=== PATIENT | female | born 1990 | race African-American/Black ===

== ENCOUNTER 2019-03-17 16:09 | Emergency (ER) | payer MEDICAID ==
[~2019-03-17] VITALS: Ht 177.8 cm; Wt 81.6 kg
[2019-03-17 16:10] VITALS: BP_SYST 122
--- NOTE | 2019-03-17 16:10 | NUR ---
BROUGHT BACK TO BED #7 AND TRIAGED. REPORT GIVEN TO ALIZA
--- NOTE | 2019-03-17 16:22 | NUR ---
Pt thinks she's and came in to check. Pt states has 4 children and knows she's .
--- NOTE | 2019-03-17 16:25 | NUR ---
STACY Palafox at bedside examining patient.
--- NOTE | 2019-03-17 16:35 | NUR ---
Pt moved to bed 5
[2019-03-17 16:43] LABS: BILIRUBIN,URINE NEGATIVE (NEGATIVE); BLOOD, URINE NEGATIVE (NEGATIVE); CLARITY/URINE SL HAZY (CLEAR); COLOR,URINE YELLOW (YELLOW); GLUCOSE,URINE NEGATIVE (NEGATIVE); KETONES,URINE TRACE (NEGATIVE); LEUKOCYTE ESTERASE ,URINE NEGATIVE (NEGATIVE); NITRITE, URINE NEGATIVE (NEGATIVE); PROTEIN URINE NEGATIVE (NEGATIVE)
--- NOTE | 2019-03-17 16:50 | NUR ---
Pt ambulated to US in stable condition
--- NOTE | 2019-03-17 17:29 | NUR ---
Patient given written and verbal discharge instructions and verbalizes understanding. ER MD discussed with patient the results and treatment provided. Patient in stable condition. ID arm band removed. Rx of pills given. Patient educated on pain management and to follow up with PMD. Pain Scale 0. Opportunity for questions provided and answered. Medication side effect fact sheet provided.
[2019-03-17 17:30] VITALS: BP_SYST 122
[2019-03-17 17:34] LABS: BASOPHILS % (AUTO) 0.5 % (0.0-2.0); EOSINOPHILS # (AUTO) 0.1 K/uL (0.0-0.4); EOSINOPHILS % (AUTO) 0.8 % (0.0-4.0); HEMOGLOBIN 10.7 g/dL (12.0-16.0); LYMPHOCYTES # (AUTO) 1.5 K/uL (1.0-5.5); LYMPHOCYTES % (AUTO) 21.9 % (20.5-51.5); MEAN CORPUSCULAR HEMOGLOBIN 29 pg (27-31); MEAN CORPUSCULAR HGB CONC 34 % (32-36); MEAN CORPUSCULAR VOLUME 88 fL (79.0-98.0); MONOCYTES # (AUTO) 0.5 K/uL (0.0-1.0); MONOCYTES % (AUTO) 7.7 % (1.7-9.3); NEUTROPHILS # (AUTO) 4.8 K/uL (1.8-7.7); NEUTROPHILS % (AUTO) 69.1 % (40.0-70.0); PLATELET COUNT (AUTO) 186 K/uL (130-430); RED BLOOD CELL COUNT(AUTO) 3.64 MIL/uL (4.2-6.2); RED CELL DISTRIBUTION WIDTH 14.3 % (9.0-15.0); WHITE BLOOD COUNT (AUTO) 6.9 K/uL (4.8-10.8)
[2019-03-17 17:43] LABS: CALCIUM 8.7 mg/dL (8.4-11.0); CREATININE 0.56 mg/dL (0.55-1.30); POTASSIUM 3.6 mmol/L (3.5-5.1)
[2019-03-17 18:09] LABS: ALBUMIN 2.6 g/dL (3.4-4.8); TOTAL BILIRUBIN 0.2 mg/dL (0.0-1.0)
== END 2019-03-17 17:29 | disposition home or self-care (01) ==
LOC: SED 16:09
DX: O99.012 Anemia complicating pregnancy, second trimester (principal); O13.2 Gestational [pregnancy-induced] hypertension without significant proteinuria, second trimester; E11.9 Type 2 diabetes mellitus without complications; Z3A.24 24 weeks gestation of pregnancy
CPT/HCPCS: 36415; 76805-TC; 80053; 81003; 81025; 84702-TC; 85025; 99284

== ENCOUNTER 2019-07-06 13:20 | Observation (INO) | payer MEDICAID ==
[~2019-07-06] VITALS: Ht 170.2 cm; Wt 93.4 kg
[2019-07-06 16:28] LABS: BILIRUBIN,URINE NEGATIVE (NEGATIVE); BLOOD, URINE NEGATIVE (NEGATIVE); COLOR,URINE YELLOW (YELLOW); GLUCOSE,URINE NEGATIVE (NEGATIVE); KETONES,URINE NEGATIVE (NEGATIVE); LEUKOCYTE ESTERASE ,URINE NEGATIVE (NEGATIVE); NITRITE, URINE NEGATIVE (NEGATIVE); PROTEIN URINE NEGATIVE (NEGATIVE); UROBILINOGEN,URINE 0.2 (0.2-1.0)
[2019-07-06 16:40] LABS: CLARITY/URINE SLIGHTLY HAZY (CLEAR)
== END 2019-07-06 15:45 | disposition home or self-care (01) ==
LOC: SPU 13:20
PROVIDERS: ADMIT Obstetrics & Gynecology; ATTEND Obstetrics & Gynecology
DX: O26.893 Other specified pregnancy related conditions, third trimester (principal); R10.9 Unspecified abdominal pain; Z3A.40 40 weeks gestation of pregnancy
CPT/HCPCS: 81003; G0378

== ENCOUNTER 2019-07-12 17:57 | Inpatient (IN) | payer MEDICAID ==
[~2019-07-12] VITALS: Ht 170.2 cm; Wt 94.3 kg
[2019-07-12] MEDS ORDERED: TERBUTALINE SULFATE 1 MG/ML VIAL ONE (18:41)
[2019-07-12] MEDS ORDERED: LR 1,000 ML IV ONE (19:26)
[2019-07-12] MEDS ORDERED: TERBUTALINE SULFATE 1 MG/ML VIAL SUBCUT ONE (19:30)
[2019-07-12] MEDS ORDERED: CEFAZOLIN 2 GM IVPB PREMIX 50 ML IV ONE ×2 (19:30→20:44)
[2019-07-12] MEDS ORDERED: LANOLIN 7 GM OINT. TP PRN (20:00)
[2019-07-12] MEDS ORDERED: BISACODYL 10 MG/SUPPOSITORY RC PRN (20:00)
[2019-07-12] MEDS ORDERED: MEPERIDINE HCL/PF 50 MG/ML AMP IVP PRN (20:00)
[2019-07-12] MEDS ORDERED: KETOROLAC TROMETHAMINE 60 MG/2 ML VIAL IM PRN (20:15)
[2019-07-12] MEDS ORDERED: fentaNYL CITRATE/PF 100 MCG/2 ML AMP IVP PRN ×2 (20:15)
[2019-07-12] MEDS ORDERED: DIPHENHYDRAMINE INJ 50 MG/ML VIAL IVP PRN (20:15)
[2019-07-12] MEDS ORDERED: ONDANSETRON HCL 4 MG/2 ML VIAL IVP PRN (20:15)
[2019-07-12] MEDS ORDERED: NALOXONE HCL 0.4 MG/ML AMP (NARCAN) IVP PRN ×2 (20:15)
[2019-07-12] MEDS ORDERED: NALBUPHINE HCL 10 MG/ML AMP IVP PRN (20:15)
[2019-07-12] MEDS ORDERED: MORPHINE SULFATE 10MG/10ML PF AMP SP SCH (20:15)
[2019-07-12] MEDS ORDERED: MORPHINE SULFATE 10MG/10ML PF AMP ONE (20:16)
[2019-07-12] MEDS ORDERED: BUPIVACAINE /DEX PF 0.75% SPINAL 2 ML AMP INJ ONE (20:16)
[2019-07-12] MEDS ORDERED: ONDANSETRON HCL 4 MG/2 ML VIAL ONE (20:16)
[2019-07-12] MEDS ORDERED: NS IRRIG SOLN 1000 ML IR ONE (20:16)
[2019-07-12] MEDS ORDERED: LR 1,000 ML IV.SOLN IV ONE (20:16)
[2019-07-12 20:25] LABS: BASOPHILS % (AUTO) 0.2 % (0.0-2.0); EOSINOPHILS % (AUTO) 0.1 % (0.0-4.0); HEMATOCRIT 36.5 % (36-48); HEMOGLOBIN 12.3 g/dL (12.0-16.0); LYMPHOCYTES # (AUTO) 0.9 K/uL (1.0-5.5); LYMPHOCYTES % (AUTO) 6.3 % (20.5-51.5); MEAN CORPUSCULAR HEMOGLOBIN 31 pg (27-31); MEAN CORPUSCULAR HGB CONC 34 % (32-36); MEAN CORPUSCULAR VOLUME 91 fL (79.0-98.0); MONOCYTES # (AUTO) 0.5 K/uL (0.0-1.0); MONOCYTES % (AUTO) 3.8 % (1.7-9.3); NEUTROPHILS # (AUTO) 12.4 K/uL (1.8-7.7); NEUTROPHILS % (AUTO) 89.6 % (40.0-70.0); PLATELET COUNT (AUTO) 178 K/uL (130-430); RED BLOOD CELL COUNT(AUTO) 4.02 MIL/uL (4.2-6.2); RED CELL DISTRIBUTION WIDTH 14.1 % (9.0-15.0); WHITE BLOOD COUNT (AUTO) 13.8 K/uL (4.8-10.8)
[2019-07-12 20:53] LABS: BILIRUBIN,URINE NEGATIVE (NEGATIVE); BLOOD, URINE 2+ (NEGATIVE); CLARITY/URINE CLEAR (CLEAR); COLOR,URINE YELLOW (YELLOW); GLUCOSE,URINE NEGATIVE (NEGATIVE); KETONES,URINE TRACE (NEGATIVE); LEUKOCYTE ESTERASE ,URINE TRACE (NEGATIVE); NITRITE, URINE NEGATIVE (NEGATIVE); PROTEIN URINE NEGATIVE (NEGATIVE)
[2019-07-12] MEDS ORDERED: TEMAZEPAM 15 MG CAPSULE PO PRN (21:00)
[2019-07-12 21:05] LABS: BARBITURATE, URINE NEGATIVE (NEG <=200); BENZODIAZEPINE, URINE NEGATIVE (NEG <=150); CANNABINOID, URINE NEGATIVE (NEG <=50); COCAINE, URINE NEGATIVE (NEG <=150); METHAMPHETAMINES SCREEN,URINE NEGATIVE (NEG <=500); OPIATE, URINE NEGATIVE (NEG <=100); PHENCYCLIDINE SCREEN,URINE NEGATIVE (NEG <=25); UR TRICYCLIC ANTIDEPRESSANTS NEGATIVE (NEG <=300); URINE AMPHETAMINE NEGATIVE (NEG <=500); URINE METHADONE NEGATIVE (NEG <=200); URINE OXYCODONE SCREEN NEGATIVE (NEG <=100); URINE PROPOXYPHENE SCREEN NEGATIVE (NEG <=300)
[2019-07-12 21:11] LABS: BACTERIA,URINE RARE /HPF (None Seen)
[2019-07-13] MEDS ORDERED: OXYTOCIN/0.9 % SODIUM CHLORIDE 1,000 ML IV SCH (03:45)
[2019-07-13] MEDS: CEFAZOLIN 1 GM IVPB PREMIX 50 ML IV SCH ×3 (03:48→15:59)
[2019-07-13] MEDS ORDERED: OXYTOCIN/0.9 % SODIUM CHLORIDE 1,000 ML IV ONE (03:49)
[2019-07-13 09:13] LABS: BASOPHILS # (AUTO) 0.1 K/uL (0.0-0.2); BASOPHILS % (AUTO) 0.5 % (0.0-2.0); EOSINOPHILS % (AUTO) 0.1 % (0.0-4.0); HEMATOCRIT 29.4 % (36-48); HEMOGLOBIN 9.8 g/dL (12.0-16.0); LYMPHOCYTES # (AUTO) 1.3 K/uL (1.0-5.5); LYMPHOCYTES % (AUTO) 10.2 % (20.5-51.5); MEAN CORPUSCULAR HEMOGLOBIN 30 pg (27-31); MEAN CORPUSCULAR HGB CONC 33 % (32-36); MEAN CORPUSCULAR VOLUME 91 fL (79.0-98.0); MONOCYTES # (AUTO) 0.8 K/uL (0.0-1.0); MONOCYTES % (AUTO) 5.8 % (1.7-9.3); NEUTROPHILS # (AUTO) 10.9 K/uL (1.8-7.7); NEUTROPHILS % (AUTO) 83.4 % (40.0-70.0); PLATELET COUNT (AUTO) 153 K/uL (130-430); RED BLOOD CELL COUNT(AUTO) 3.23 MIL/uL (4.2-6.2); RED CELL DISTRIBUTION WIDTH 13.9 % (9.0-15.0); WHITE BLOOD COUNT (AUTO) 13.1 K/uL (4.8-10.8)
[2019-07-13 10:43] VITALS: BP_SYST 120
[2019-07-13] MEDS: IBUPROFEN 800 MG TABLET PO PRN (17:42)
[2019-07-13] MEDS: DOCUSATE SODIUM 100 MG CAPSULE PO PRN (17:42)
[2019-07-13] MEDS: SIMETHICONE 80 MG TAB.CHEW PO PRN (17:42)
[2019-07-14] MEDS: IBUPROFEN 800 MG TABLET PO PRN ×4 (06:14→23:44)
[2019-07-14] MEDS: DOCUSATE SODIUM 100 MG CAPSULE PO PRN ×2 (12:20→23:44)
[2019-07-14] MEDS: OXYCODONE/ACETAMINOPHEN 5-325 TABLET PO PRN (23:45)
[2019-07-15] MEDS: IBUPROFEN 800 MG TABLET PO PRN ×3 (06:05→18:28)
[2019-07-15] MEDS: OXYCODONE/ACETAMINOPHEN 5-325 TABLET PO PRN (06:06)
[2019-07-15] MEDS: SIMETHICONE 80 MG TAB.CHEW PO PRN ×2 (12:20→18:28)
[2019-07-15] MEDS: DOCUSATE SODIUM 100 MG CAPSULE PO PRN (18:28)
== END 2019-07-15 20:00 | disposition home or self-care (01) | DRG 540 ==
LOC: SPU 17:57 → OBSVTOIN 18:30 → SPU 07-13 09:01
PROVIDERS: ADMIT Specialist; ATTEND Specialist
PROC: 0UB70ZZ Excision of Bilateral Fallopian Tubes, Open Approach (ICD-10-PCS; 2019-07-12)
PROC: 10D00Z1 Extraction of Products of Conception, Low, Open Approach (ICD-10-PCS; principal; 2019-07-12 21:00)
DX: O48.0 Post-term pregnancy (principal); D62 Acute posthemorrhagic anemia; O34.211 Maternal care for low transverse scar from previous cesarean delivery; N73.6 Female pelvic peritoneal adhesions (postinfective); O69.81X0 Labor and delivery complicated by cord around neck, without compression, not applicable or unspecified; O75.89 Other specified complications of labor and delivery; Z37.0 Single live birth; Z30.2 Encounter for sterilization; Z3A.41 41 weeks gestation of pregnancy
CPT/HCPCS: 36415; 80307; 81000-TC; 85025; 86592; 86762; 86886; 86900; 86901; 87340; 87536; 88302; 94760; G0378; J0690; J2274; J2405; J2590; J3105; J3490; J7120